=== PATIENT | female | born 1950 | race Caucasian/White ===

== ENCOUNTER 2017-06-15 09:05 | Emergency (ER) | payer OTHER, MEDICARE ==
[~2017-06-15] VITALS: Ht 162.6 cm; Wt 89.5 kg
[2017-06-15] MEDS ORDERED: MOTRIN800 MG PO (10:30)
[2017-06-15 10:38] VITALS: BP 106/80
== END 2017-06-15 10:39 | disposition home or self-care (01) ==
LOC: EME 09:05
DX: S20.212A Contusion of left front wall of thorax, initial encounter (principal); X58.XXXA Exposure to other specified factors, initial encounter; Y93.E2 Activity, laundry
CPT/HCPCS: 71101; 99281; 99283

== ENCOUNTER 2017-10-08 15:46 | Emergency (ER) | payer OTHER, MEDICARE ==
[~2017-10-08] VITALS: Ht 162.6 cm; Wt 90.1 kg
[~2017-10-08 15:46] MED LIST: MOTRIN800 MG PO
[2017-10-08 16:31] LABS: HEMATOCRIT 45.1 % (36.0-46.0); HEMOGLOBIN 15.3 G/DL (11.9-15.5); MCH 30.3 PG (29.0-34.0); MCHC 33.9 G/DL (30.0-36.0); MCV 89.3 FL (83-99); PLATELET COUNT 175 K/uL (156-360); RBC DIS.WIDTH-CV 14.7 % (11.8-14.6); RBC DIS.WIDTH-SD 48.4 % (39-53); RED BLOOD COUNT 5.05 M/uL (3.80-5.20); WHITE BLOOD COUNT 8.7 K/uL (4.1-10.2)
[2017-10-08 16:40] LABS: CHLORIDE 104 mEq/L (99-109); POTASSIUM 3.4 mEq/L (3.7-5.4); SODIUM 141 mEq/L (136-147)
[2017-10-08 16:42] LABS: GLUCOSE 159 mg/dL (70-99)
[2017-10-08 16:45] LABS: CREATININE 0.8 mg/dL (0.6-1.3); GFR ESTIMATE (CALCULATED) > 59 mL/min/
[2017-10-08 16:46] LABS: UREA NITROGEN (BUN) 17 mg/dL (9-23)
[2017-10-08 17:59] LABS: APPEARANCE CLEAR ((CLEAR)); BILIRUBIN NEGATIVE; BLOOD NEGATIVE; COLOR YELLOW ((YELLOW)); GLUCOSE (STRIP) NEGATIVE; KETONES NEGATIVE; LEUKOCYTES NEGATIVE; NITRITE NEGATIVE; PROTEIN (STRIP) NEGATIVE; SPECIFIC GRAVITY 1.014 (1.000-1.030); UCUL ADDED? NO; UROBILINOGEN 0.2 MG/DL (0.2-1.0)
[2017-10-08] MEDS ORDERED: FLEXERIL10 MG PO (18:29)
[2017-10-08 19:05] VITALS: BP 159/88
== END 2017-10-08 19:09 | disposition home or self-care (01) ==
LOC: EME 15:46
DX: M54.9 Dorsalgia, unspecified (principal); J06.9 Acute upper respiratory infection, unspecified; I10 Essential (primary) hypertension; Z85.038 Personal history of other malignant neoplasm of large intestine; Z85.42 Personal history of malignant neoplasm of other parts of uterus; Z88.2 Allergy status to sulfonamides
CPT/HCPCS: 71046; 80048; 81003; 85027; 94640; 99281; 99284; J1885; J7512